=== PATIENT | male | born 1965 | race Hispanic/Latino ===

== ENCOUNTER 2018-05-22 21:13 | Emergency (ER) | payer OTHER ==
[2018-05-22 21:19] VITALS: RESP 18
[2018-05-22] MEDS ORDERED: Oxycodone/Acetaminophen 5/325 mg Tab PO STA (21:48)
[2018-05-22] MEDS ORDERED: Oxycodone/Acetaminophen 5/325 mg Tab ONE (21:52)
--- NOTE | 2018-05-22 21:56 | ED PDOC ---
Lower Extremity Pain/Injury Time Seen by Provider: 05/22/18 21:20 Chief Complaint (Nursing): Lower Extremity Problem/Injury Chief Complaint (Provider): Lower Extremity Problem/Injury History Per: Patient History/Exam Limitations: no limitations Onset/Duration Of Symptoms: Days (x2) Current Symptoms Are (Timing): Still Present Additional Complaint(s): 53 year old male with no significant medical history presents to the ED with left lateral hip pain onset 2 days. Patient reports he had similar pain on his right side a month ago that resolved on its own. He saw his PMD in [place] today and was given valium and diclofenac, but had no relief after taking it at 6 pm. Patient started kick boxing 4 months ago and states he did an extra leg workout on Friday. He denies any bladder or bowel incontinence. PMD: in [place] Past Medical History Reviewed: Historical Data, Nursing Documentation, Vital Signs Vital Signs: Last Vital Signs Temp 99.1 F 05/22/18 21:16 Pulse 84 05/22/18 21:16 Resp 18 05/22/18 21:16 BP 148/69 05/22/18 21:16 Pulse Ox 99 05/22/18 21:16 - Medical History PMH: No Chronic Diseases - Surgical History Surgical History: No Surg Hx - Family History Family History: States: Unknown Family Hx - Home Medications Home Medications: Ambulatory Orders Medication Instructions Recorded Methylprednisolone [Medrol] 4 mg PO TITR #1 unit 05/22/18 Methylprednisolone [Medrol] 4 mg PO TITR #1 unit 05/22/18 oxyCODONE/Acetaminophen [Percocet 1 ea PO Q6H PRN #15 tab 05/22/18 5/325 mg Tab] - Allergies Allergies/Adverse Reactions: Allergies Allergy/AdvReac Type Severity Reaction Status Date / Time No Known Allergies Allergy Verified 05/22/18 21:16 Review of Systems ROS Statement: Except As Marked, All Systems Reviewed And Found Negative Musculoskeletal: Positive for: Other (hip pain ) Physical Exam - Reviewed Nursing Documentation Reviewed: Yes Vital Signs Reviewed: Yes - Physical Exam Appears: Positive for: Non-toxic, No Acute Distress Head Exam: Positive for: ATRAUMATIC Skin: Positive for: Normal Color, Warm Eye Exam: Positive for: Normal appearance Neck: Positive for: Normal Respiratory: Negative for: Accessory Muscle Use, Respiratory Distress Extremity: Positive for: Tenderness (Tenderness to left insertion of IT band ), Other (no bruising or lesions). Negative for: Normal ROM (decreased) Neurologic/Psych: Positive for: Alert - ECG O2 Sat by Pulse Oximetry: 99 (RA) Pulse Ox Interpretation: Normal Medical Decision Making Medical Decision Making: Time: 21:48 Initial Plan: --Percocet 1 tab PO --Solu-medrol 125 mg IM --Left hip XR Scribe Attestation: Documented by Sally Quiroz, acting as a scribe for Sherrie Acevedo PA-C. Provider Scribe Attestation: All medical record entries made by the Scribe were at my direction and personally dictated by me. I have reviewed the chart and agree that the record accurately reflects my personal performance of the history, physical exam, medical decision making, and the department course for this patient. I have also personally directed, reviewed, and agree with the discharge instructions and disposition. Disposition - Clinical Impression Clinical Impression: Trochanteric bursitis of left hip - Patient ED Disposition Is Patient to be Admitted: No Counseled Patient/Family Regarding: Diagnosis, Need For Followup, Rx Given - Disposition Referrals: Emory Rodas III, MD [Staff Provider] - Disposition: Routine/Home Disposition Time: 23:59 Condition: STABLE Prescriptions: Methylprednisolone [Medrol] 4 mg PO TITR #1 unit Methylprednisolone [Medrol] 4 mg PO TITR #1 unit oxyCODONE/Acetaminophen [Percocet 5/325 mg Tab] 1 ea PO Q6H PRN #15 tab PRN Reason: Pain, Severe (8-10) Instructions: Hip Bursitis (DC) Forms: SYLLETA (Macedonian)
[2018-05-23 00:02] VITALS: BP 122/70; PULSE 76; TEMP 98; O2SAT 100
--- NOTE | 2018-05-23 09:50 | RAD ---
PROCEDURE: Left Hip X-ray Radiographs. HISTORY: hip pain COMPARISON: None. FINDINGS: BONES: No acute fracture. JOINTS: Normal. SOFT TISSUES: Normal. OTHER FINDINGS: None. IMPRESSION: No demonstrated fracture dislocation.
== END 2018-05-23 00:01 | disposition home or self-care (01) ==
LOC: H.ER 21:13
DX: M70.62 Trochanteric bursitis, left hip (principal)
CPT/HCPCS: 73502; 96372; 99283; J2930